=== PATIENT | male | born 1940 | race American Indian/Alaskan Native ===

== ENCOUNTER 2018-09-19 16:50 | Inpatient (IN) | payer MEDICARE ==
--- NOTE | 2018-09-19 18:00 | Emergency Department Report ---
- General Chief complaint: Weakness Stated complaint: N/V, WEAKNESS Time Seen by Provider: 09/19/18 17:45 Source: EMS Mode of arrival: Stretcher Limitations: No Limitations - History of Present Illness Initial comments: Patient is a 78-year-old male if this emergency room with complaints of shortness of breath, difficulty in breathing and weakness and nausea vomiting. Patient states symptoms started about 2 hours ago. Patient states she was at a senior center when the symptoms started. Patient was brought in by EMS. Patient was found to be hypoxemic and placed on oxygen. Patient states his symptoms are better with rest and worse with exertion. Patient states had a his tory of multiple myeloma and A. fib and hypertension MD Complaint: generalized weakness -: Sudden Severity scale (0 -10): 0 - Related Data Home Medications Medication Instructions Recorded Confirmed Last Taken AtorvaSTATin [Lipitor] 10 mg PO QHS 09/20/18 09/20/18 09/19/18 Dabigatran [Pradaxa] 150 mg PO BID 09/20/18 09/20/18 09/19/18 Furosemide [Lasix TAB] 20 mg PO QDAY 09/20/18 09/20/18 09/19/18 Gabapentin [Neurontin] 600 mg PO BID 09/20/18 09/20/18 09/19/18 HYDROmorphone [Dilaudid] 4 mg PO Q2HR PRN 09/20/18 09/20/18 Unknown Lidocaine [Lidocaine Pain Relief] 1 each TP PRN 09/20/18 09/20/18 Unknown Lidocaine [Lidocaine Pain Relief] 1 each TP PRN 09/20/18 09/20/18 Unknown Lisinopril [Zestril TAB] 20 mg PO QDAY 09/20/18 09/20/18 09/19/18 Sotalol HCl [Sotalol] 120 mg PO BID 09/20/18 09/20/18 09/19/18 hydroCHLOROthiazide [HCTZ] 12.5 mg PO QDAY 09/20/18 09/20/18 09/19/18 Previous Rx's Medication Instructions Recorded Last Taken Type Albuterol Sulfate [Proair 90 mcg IH Q4H PRN #1 pump 09/21/18 Unknown Rx Respiclick] guaiFENesin [Robitussin] 200 mg PO Q4H PRN #1 bottle 09/21/18 Unknown Rx levoFLOXacin [Levaquin] 750 mg PO QDAY #5 tablet 09/21/18 Unknown Rx Allergies Allergy/AdvReac Type Severity Reaction Status Date / Time No Known Allergies Allergy Verified 09/19/18 21:46 ED Review of Systems ROS: Stated complaint: N/V, WEAKNESS Other details as noted in HPI Constitutional: malaise, weakness. denies: chills, fever Eyes: denies: eye pain, eye discharge, vision change ENT: denies: ear pain, throat pain Respiratory: shortness of breath. denies: cough, wheezing Cardiovascular: denies: chest pain, palpitations Endocrine: no symptoms reported Gastrointestinal: nausea, vomiting. denies: abdominal pain, diarrhea Genitourinary: denies: urgency, dysuria Musculoskeletal: denies: back pain, joint swelling, arthralgia Skin: denies: rash, lesions Neurological: denies: headache, weakness, paresthesias Psychiatric: denies: anxiety, depression Hematological/Lymphatic: denies: easy bleeding, easy bruising ED Past Medical Hx - Past Medical History Previous Medical History?: Yes Hx Hypertension: Yes Additional medical history: A. fib. Multiple myeloma. Hypertension - Surgical History Past Surgical History?: Yes Additional Surgical History: gallbladder removed 2009 - Family History Family history: no significant - Social History Smoking Status: Former Smoker Substance Use Type: None - Medications Home Medications: Home Medications Medication Instructions Recorded Confirmed Last Taken Type AtorvaSTATin [Lipitor] 10 mg PO QHS 09/20/18 09/20/18 09/19/18 History Dabigatran [Pradaxa] 150 mg PO BID 09/20/18 09/20/18 09/19/18 History Furosemide [Lasix TAB] 20 mg PO QDAY 09/20/18 09/20/18 09/19/18 History Gabapentin [Neurontin] 600 mg PO BID 09/20/18 09/20/18 09/19/18 History HYDROmorphone [Dilaudid] 4 mg PO Q2HR PRN 09/20/18 09/20/18 Unknown History Lidocaine [Lidocaine Pain Relief] 1 each TP PRN 09/20/18 09/20/18 Unknown History Lidocaine [Lidocaine Pain Relief] 1 each TP PRN 09/20/18 09/20/18 Unknown History Lisinopril [Zestril TAB] 20 mg PO QDAY 07/09/20/18 09/19/18 History Sotalol HCl [Sotalol] 120 mg PO BID 09/20/18 09/20/18 09/19/18 History hydroCHLOROthiazide [HCTZ] 12.5 mg PO QDAY 09/20/18 09/20/18 09/19/18 History Albuterol Sulfate [Proair 90 mcg IH Q4H PRN #1 pump 09/21/18 Unknown Rx Respiclick] guaiFENesin [Robitussin] 200 mg PO Q4H PRN #1 bottle 09/21/18 Unknown Rx levoFLOXacin [Levaquin] 750 mg PO QDAY #5 tablet 09/21/18 Unknown Rx ED Physical Exam - General Limitations: No Limitations General appearance: alert, in no apparent distress - Head Head exam: Present: atraumatic, normocephalic - Eye Eye exam: Present: normal appearance - ENT ENT exam: Present: mucous membranes moist - Neck Neck exam: Present: normal inspection - Respiratory Respiratory exam: Present: normal lung sounds bilaterally. Absent: respiratory distress - Cardiovascular Cardiovascular Exam: Present: regular rate, normal rhythm. Absent: systolic murmur, diastolic murmur, rubs, gallop - GI/Abdominal GI/Abdominal exam: Present: soft, normal bowel sounds - Rectal Rectal exam: Present: deferred - Extremities Exam Extremities exam: Present: normal inspection - Back Exam Back exam: Present: normal inspection - Neurological Exam Neurological exam: Present: alert, oriented X3 - Psychiatric Psychiatric exam: Present: normal affect, normal mood - Skin Skin exam: Present: warm, dry, intact, normal color. Absent: rash - Assessment Assessment Interval: Baseline - Level of Consciousness 1a. Level of Consciousness: alert/keenly responsive - LOC Questions 1b. LOC Questions: answers both correctly - LOC Command 1c. LOC Commands: performs tasks correctly - Best Gaze 2. Best Gaze: normal - Visual 3. Visual: no visual loss - Facial Palsy 4. Facial Palsy: normal symmetrical movement - Motor Arm 5a. Motor Arm Left: no drift 5b. Motor Arm Right: no drift - Motor Leg 6a. Motor Leg Left: no drift 6b. Motor Leg Right: no drift - Limb Ataxia 7. Limb Ataxia: absent - Sensory 8. Sensory: normal - Best Language 9. Best Language: no aphasia - Dysarthria 10. Dysarthria: normal - Extinction and Inattention 11. Extinction/Inattention: no abnormality - Scoring Total Score: 0 Stroke Severity: No Stroke Symptoms ED Course Vital Signs 09/19/18 09/19/18 09/19/18 17:10 17:15 17:27 Temperature 100.5 F H Pulse Rate 92 H Respiratory 12 Rate Blood Pressure 143/78 Blood Pressure [Left] O2 Sat by Pulse 89 90 93 Oximetry 09/19/18 09/19/18 09/19/18 17:30 17:31 17:45 Temperature 100.5 F H Pulse Rate 91 H 92 H 94 H Respiratory 22 12 10 L Rate Blood Pressure 143/68 146/87 Blood Pressure 143/78 [Left] O2 Sat by Pulse 95 93 93 Oximetry 09/19/18 09/19/18 09/19/18 18:00 18:15 18:30 Temperature Pulse Rate 91 H 91 H 91 H Respiratory 44 H 47 H 23 Rate Blood Pressure 156/88 139/80 139/80 Blood Pressure [Left] O2 Sat by Pulse 92 95 92 Oximetry 09/19/18 09/19/18 09/19/18 19:00 19:15 19:30 Temperature Pulse Rate 92 H 94 H 93 H Respiratory 21 19 27 H Rate Blood Pressure 134/86 132/88 132/88 Blood Pressure [Left] O2 Sat by Pulse 94 93 94 Oximetry 09/19/18 09/19/18 09/19/18 19:45 20:00 21:17 Temperature Pulse Rate 91 H 91 H 80 Respiratory 50 H 18 Rate Blood Pressure 141/70 141/63 Blood Pressure [Left] O2 Sat by Pulse 94 93 Oximetry 09/19/18 09/20/18 09/20/18 23:53 00:00 00:15 Temperature Pulse Rate 85 85 80 Respiratory 16 29 H Rate Blood Pressure 141/63 130/78 130/78 Blood Pressure [Left] O2 Sat by Pulse Oximetry 09/20/18 09/20/18 09/20/18 00:30 00:45 01:01 Temperature Pulse Rate 78 76 78 Respiratory 27 H 27 H 39 H Rate Blood Pressure 130/78 132/69 145/70 Blood Pressure [Left] O2 Sat by Pulse Oximetry 09/20/18 09/20/18 09/20/18 01:15 01:30 01:45 Temperature Pulse Rate 80 Respiratory 31 H Rate Blood Pressure 122/73 126/80 131/75 Blood Pressure [Left] O2 Sat by Pulse Oximetry 09/20/18 09/20/18 09/20/18 02:01 02:15 02:31 Temperature Pulse Rate Respiratory Rate Blood Pressure 126/75 122/83 130/88 Blood Pressure [Left] O2 Sat by Pulse Oximetry 09/20/18 09/20/18 09/20/18 03:00 03:30 04:00 Temperature Pulse Rate Respiratory Rate Blood Pressure 119/69 128/74 130/75 Blood Pressure [Left] O2 Sat by Pulse 92 Oximetry 09/20/18 09/20/18 09/20/18 04:31 05:01 05:30 Temperature Pulse Rate Respiratory Rate Blood Pressure 139/75 132/66 120/74 Blood Pressure [Left] O2 Sat by Pulse 94 94 93 Oximetry 09/20/18 09/20/18 09/20/18 06:01 06:30 07:00 Temperature Pulse Rate 78 76 Respiratory 39 H 27 H Rate Blood Pressure 132/73 108/60 108/60 Blood Pressure [Left] O2 Sat by Pulse 93 92 95 Oximetry 09/20/18 09/20/18 09/20/18 07:30 07:41 07:51 Temperature Pulse Rate 81 85 81 Respiratory 26 H 29 H 32 H Rate Blood Pressure 103/51 103/51 103/51 Blood Pressure [Left] O2 Sat by Pulse 92 93 92 Oximetry 09/20/18 09/20/18 08:00 08:11 Temperature Pulse Rate 78 78 Respiratory 21 29 H Rate Blood Pressure 122/69 122/69 Blood Pressure [Left] O2 Sat by Pulse 91 92 Oximetry - Reevaluation(s) Reevaluation #1: I discussed all results with patient. Patient will be admitted to the hospitalist service. Patient agrees to plan of care. 09/19/18 19:57 - Consultations Consultation #1: Hospitalist consult. Hospitalist to admit patient and assume care of patient. 09/19/18 19:57 ED Medical Decision Making - Lab Data Result diagrams: 09/20/18 05:29 09/20/18 05:29 - EKG Data -: EKG Interpreted by Me EKG shows normal: sinus rhythm, axis, intervals, QRS complexes, ST-T waves Rate: normal - Radiology Data Radiology results: report reviewed CHEST 1 VIEW 1818 INDICATION / CLINICAL INFORMATION: Dyspnea. COMPARISON: None available. FINDINGS: SUPPORT DEVICES: None HEART / MEDIASTINUM: No significant abnormality. LUNGS / PLEURA: Poor degree of inspiration is seen despite 2 attempts. Bibasilar atelectatic changes are seen. No definite areas of consolidation are noted. No pneumothorax. ADDITIONAL FINDINGS: No significant additional findings. IMPRESSION: Basilar atelectasis CTA CHEST WITH IV CONTRAST INDICATION / CLINICAL INFORMATION: MAIN: COUGH, WEAKNESS. SOB.. AMS. . TECHNIQUE: Axial CT images were obtained through the chest after injection of 100 mL IV contrast. 3 plane MIP and/or 3D reconstructions were produced. All CT scans at this location are performed using CT dose reduction for ALARA by means of automated exposure control. COMPARISON: None available. FINDINGS: PULMONARY ARTERIES: No pulmonary emboli. THORACIC AORTA: Mild ectasia of the ascending aorta with maximum transverse diameter of 4.6 cm. HEART: No significant abnormality. CORONARY ARTERIES: Coronary artery calcification noted. PLEURA: No pleural effusion. No pneumothorax. LYMPH NODES: No significant adenopathy. LUNGS: There is chronic interstitial disease bilaterally. However there is more focal parenchymal disease in the left lung base and right middle lobe which could represent superimposed pneumonia. Unfortunately we have no prior older comparisons. ADDITIONAL FINDINGS: None. UPPER ABDOMEN: No acute findings. SKELETAL STRUCTURES: Osseous structures are grossly abnormal. There are innumerable lytic lesions seen throughout the visualized thoracic spine, ribs, sternum, and shoulders. There is a soft tissue component in a mid right lateral rib. This soft tissue mass measures approximately 4.2 cm. The overall appearance of the lytic lesions is most suggestive for multiple myeloma. Additionally there are severe compression fractures of 2 upper to mid thoracic vertebra with kyphotic deformity. No retropulsion noted. Incidental finding of old healed sternal fracture. IMPRESSION: 1. No CT evidence for pulmonary embolism. 2. Patchy airspace disease within both lower lobes with underlying chronic interstitial findings. The findings are certainly worrisome for superimposed pneumonia. Please correlate clinically. 3. Significant finding of numerous lytic lesions throughout the visualized thorax of concern for multiple myeloma. 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 4. Severe compression fractures of 2 upper to mid thoracic vertebra resulting in kyphotic deformity without significant retropulsion. - Medical Decision Making Patient is a 78-year-old Presents to the Emergency room with shortness of luciana th, difficulty breathing, nausea vomiting and weakness. Patient found to have pneumonia. Patient found to have hypokalemia. Patient's also found to have lactic acidosis. Patient admitted to the hospitalist service. Patient was found to be hypoxic and placed on oxygen. - Differential Diagnosis nausea. Vomiting. Weakness. Hypoxia. Shortness of breath Critical Care Time: Yes Critical care attestation.: If time is entered above; I have spent that time in minutes in the direct care of this critically ill patient, excluding procedure time. Critical Care Time: 35 minutes ED Disposition Clinical Impression: Hypoxia, SOB (shortness of breath), Weakness, Lactic acid acidosis, Hypokalemia Fever Qualifiers: Fever type: unspecified Qualified Code(s): R50.9 - Fever, unspecified Pneumonia Qualifiers: Pneumonia type: due to unspecified organism Laterality: unspecified laterality Lung location: unspecified part of lung Qualified Code(s): J18.9 - Pneumonia, unspecified organism Disposition: OP ADMIT IP TO THIS HOSP Is pt being admited?: Yes Does the pt Need Aspirin: No Condition: Fair Time of Disposition: 19:59
--- NOTE | 2018-09-19 18:47 | XRay Report ---
CHEST 1 VIEW 1818 INDICATION / CLINICAL INFORMATION: Dyspnea. COMPARISON: None available. FINDINGS: SUPPORT DEVICES: None HEART / MEDIASTINUM: No significant abnormality. LUNGS / PLEURA: Poor degree of inspiration is seen despite 2 attempts. Bibasilar atelectatic changes are seen. No definite areas of consolidation are noted. No pneumothorax. ADDITIONAL FINDINGS: No significant additional findings. IMPRESSION: Basilar atelectasis Signer Name: Rojelio Tillman MD Signed: 09/19/2018 6:43 PM Workstation Name: [id number]
[2018-09-19 18:58] LABS: Basophils % (Auto) 0.3 % (0.0-1.8); Eosinophils % (Auto) 0.3 % (0.0-4.3); Hematocrit 39.1 % (35.5-45.6); Hemoglobin 13.6 gm/dl (11.8-15.2); Lymphocytes # (Auto) 0.6 K/mm3 (1.2-5.4); Lymphocytes % (Auto) 8.2 % (13.4-35.0); Mean Corpuscular HGB Conc 35 % (32-34); Mean Corpuscular Volume 97 fl (84-94); Monocytes # (Auto) 0.3 K/mm3 (0.0-0.8); Platelet Count 152 K/mm3 (140-440); Red Blood Count 4.04 M/mm3 (3.65-5.03)
[2018-09-19 19:17] LABS: Creatine Kinase MB 1.6 ng/mL (0.0-4.0)
[2018-09-19 19:18] LABS: Alanine Aminotransferase 38 units/L (7-56); Albumin 4.2 g/dL (3.9-5); BUN/Creatinine Ratio 17; Blood Urea Nitrogen 19 mg/dL (9-20); Calcium 9.5 mg/dL (8.4-10.2); Hemolysis Index 7
--- NOTE | 2018-09-19 21:10 | Cat Scan Report ---
CTA CHEST WITH IV CONTRAST INDICATION / CLINICAL INFORMATION: MAIN: COUGH, WEAKNESS. SOB.. AMS. . TECHNIQUE: Axial CT images were obtained through the chest after injection of 100 mL IV contrast. 3 plane MIP an d/or 3D reconstructions were produced. All CT scans at this location are performed using CT dose redu ction for [facility] by means of automated exposure control. COMPARISON: None available. FINDINGS: PULMONARY ARTERIES: No pulmonary emboli. THORACIC AORTA: Mild ectasia of the ascending aorta with maximum transverse diameter of 4.6 cm. HEART: No significant abnormality. CORONARY ARTERIES: Coronary artery calcification noted. PLEURA: No pleural effusion. No pneumothorax. LYMPH NODES: No significant adenopathy. LUNGS: There is chronic interstitial disease bilaterally. However there is more focal parenchymal dis ease in the left lung base and right middle lobe which could represent superimposed pneumonia. Unfort unately we have no prior older comparisons. ADDITIONAL FINDINGS: None. UPPER ABDOMEN: No acute findings. SKELETAL STRUCTURES: Osseous structures are grossly abnormal. There are innumerable lytic lesions see n throughout the visualized thoracic spine, ribs, sternum, and shoulders. There is a soft tissue comp onent in a mid right lateral rib. This soft tissue mass measures approximately 4.2 cm. The overall ap pearance of the lytic lesions is most suggestive for multiple myeloma. Additionally there are severe compression fractures of 2 upper to mid thoracic vertebra with kyphotic deformity. No retropulsion noted. Incidental finding of old healed sternal fracture. IMPRESSION: 1. No CT evidence for pulmonary embolism. 2. Patchy airspace disease within both lower lobes with underlying chronic interstitial findings. The findings are certainly worrisome for superimposed pneumonia. Please correlate clinically. 3. Significant finding of numerous lytic lesions throughout the visualized thorax of concern for mult iple myeloma. There is a soft tissue mass component within a mid right lateral rib, possibly represen ting a plasmacytoma.. 4. Severe compression fractures of 2 upper to mid thoracic vertebra resulting in kyphotic deformity w ithout significant retropulsion. Signer Name: Liseth Saez MD Signed: 09/19/2018 9:06 PM Workstation Name: [id number]
--- NOTE | 2018-09-19 21:11 | Cat Scan Report ---
CT head/brain wo con INDICATION: weakness. TECHNIQUE: Routine CT head without contrast. Sagittal and coronal reformatted images were obtained. A ll CT scans at this location are performed using CT dose reduction for ALARA by means of automated ex posure control. COMPARISON: None. FINDINGS: BRAIN / INTRACRANIAL CONTENTS: No acute hemorrhage, mass effect, midline shift, hydrocephalus, or acu te, large territorial infarct. Chronic ischemic changes are seen in the right corpus stratum. No sign ificant white matter abnormality. Focal area of scalp thickening is seen in the left supraorbital reg ion. CRANIOCERVICAL JUNCTION: No significant abnormality. ORBITS: No significant abnormality of visualized orbits. SINUSES / MASTOIDS: No significant abnormality of the visualized paranasal sinuses or mastoid air magda ls. ADDITIONAL FINDINGS: None. IMPRESSION: I do not see an acute parenchymal lesion in the brain. Signer Name: Moe Jaramillo MD Signed: 09/19/2018 9:07 PM Workstation Name: [id number]
[2018-09-19] MEDS ORDERED: SODIUM CHLORIDE FLUSH SYRINGE 10 ML IV PRN (21:39)
[2018-09-19] MEDS ORDERED: PROVENTIL IH PRN (21:39)
[2018-09-19] MEDS ORDERED: TYLENOL PO PRN (21:39)
[2018-09-19] MEDS ORDERED: ZOFRAN IV PRN (21:39)
--- NOTE | 2018-09-19 21:39 | History and Physical Report ---
History of Present Illness Date of examination: 09/19/18 Date of admission: 09/19/2018 Chief complaint: Difficulty in breathing, cough History of present illness: 78-year-old -Congolese male who is a former smoker with history of multiple myeloma, hypertension, HLD, A. fib rate control on Pradaxa, who presents to [facility] ED via EMS with complaints of difficulty in breathing, weakness, nausea, emesis 2. He states that he was at the [facility] this afternoon, when his symptoms began. He started coughing followed by shortness of breath and difficulty breathing. His symptoms were accompanied by nausea with 2 episodes of emesis. The first episode was at the [facility] and the second episode was in the ambulance in route to our facility. Patient was found to be hypoxic by EMS and he was placed on supplemental oxygen. Patient states that this dyspnea is aggravated with exertion and improves at rest. Denies: Fever, chills, diarrhea, sputum production, hemoptysis, headache, hematuria, dysuria or recent sick contact Past History Past Medical History: atrial fib (on pradaxa), cancer (multiple myeloma, in remission for the past 12 years, ), hypertension, hyperlipidemia Past Surgical History: cholecystectomy (2009), Other (S/P stem cell transplant, chemotherapy and radiation) Social history: lives with family, other (former smoker ) Family history: no significant family history Medications and Allergies Allergies Allergy/AdvReac Type Severity Reaction Status Date / Time No Known Allergies Allergy Verified 09/19/18 21:46 Review of Systems All systems: negative (reviewed and no additional remarkable complaints except as noted below) Constitutional: weakness, malaise Cardiovascular: shortness of breath Respiratory: cough, shortness of breath, dyspnea on exertion Gastrointestinal: nausea, vomiting Exam - Physical Exam Narrative exam: Physical exam General appearance: Present: No acute distress, ill-appearing, alert and oriented 3, well-developed -Congolese male older adult - EENT Eyes: Present: PERRL, EOM intact ENT: hearing intact, normal dentition - Neck Neck: Present: supple, normal ROM - Respiratory Respiratory effort: Non-labored Respiratory: Faint bibasilar crackles - Cardiovascular Heart rate:94 (bpm) Rhythm: Sinus rhythm Heart Sounds: Present: S1 & S2. Absent: rub, click - Extremities Extremities: no ischemia, pulses intact, - Peripheral Assessment Peripheral Pulses: within normal limits - Abdominal General gastrointestinal: soft, non-tender, normal bowel sounds - Integumentary Integumentary: Present: warm, dry - Musculoskeletal Musculoskeletal: generalized weakness, and minimal function remains, ambulates with cane at baseline -Neurological Neurological:CN II-XII intact - Psychiatric Psychiatric: cooperative - Constitutional Vitals: Temp Pulse Resp BP Pulse Ox 100.5 F H 80 18 141/63 93 09/19/18 17:31 09/19/18 21:17 09/19/18 20:00 09/19/18 20:00 09/19/18 20:00 Results - Labs CBC & Chem 7: 09/19/18 18:47 09/19/18 18:47 Labs: Laboratory Last Values WBC 7.0 K/mm3 (4.5-11.0) 09/19/18 18:47 RBC 4.04 M/mm3 (3.65-5.03) 09/19/18 18:47 Hgb 13.6 gm/dl (11.8-15.2) 09/19/18 18:47 Hct 39.1 % (35.5-45.6) 09/19/18 18:47 MCV 97 fl (84-94) H 09/19/18 18:47 MCH 34 pg (28-32) H 09/19/18 18:47 MCHC 35 % (32-34) H 09/19/18 18:47 RDW 13.0 % (13.2-15.2) L 09/19/18 18:47 Plt Count 152 K/mm3 (140-440) 09/19/18 18:47 Lymph % (Auto) 8.2 % (13.4-35.0) L 09/19/18 18:47 [place] % (Auto) 4.0 % (0.0-7.3) 09/19/18 18:47 Eos % (Auto) 0.3 % (0.0-4.3) 09/19/18 18:47 Baso % (Auto) 0.3 % (0.0-1.8) 09/19/18 18:47 Lymph # 0.6 K/mm3 (1.2-5.4) L 09/19/18 18:47 [place] # 0.3 K/mm3 (0.0-0.8) 09/19/18 18:47 Eos # 0.0 K/mm3 (0.0-0.4) 09/19/18 18:47 Baso # 0.0 K/mm3 (0.0-0.1) 09/19/18 18:47 Seg Neutrophils % 87.2 % (40.0-70.0) H 09/19/18 18:47 Seg Neutrophils # 6.1 K/mm3 (1.8-7.7) 09/19/18 18:47 222.09 ng/mlDDU (0-234) 09/19/18 18:47 Sodium 139 mmol/L (137-145) 09/19/18 18:47 Potassium 3.2 mmol/L (3.6-5.0) L 09/19/18 18:47 Chloride 99.1 mmol/L (98-107) 09/19/18 18:47 Carbon Dioxide 26 mmol/L (22-30) 09/19/18 18:47 17 mmol/L 09/19/18 18:47 BUN 19 mg/dL (9-20) 09/19/18 18:47 1.1 mg/dL (0.8-1.5) 09/19/18 18:47 Estimated GFR > 60 ml/min 09/19/18 18:47 17 % 09/19/18 18:47 Glucose 104 mg/dL (75-100) H 09/19/18 18:47 Lactic Acid 2.30 mmol/L (0.7-2.0) H* 09/19/18 20:55 Calcium 9.5 mg/dL (8.4-10.2) 09/19/18 18:47 1.20 mg/dL (0.1-1.2) 09/19/18 18:47 AST 36 units/L (5-40) 09/19/18 18:47 ALT 38 units/L (7-56) 09/19/18 18:47 81 units/L (35-129) 09/19/18 18:47 284 units/L (55-170) H 09/19/18 18:47 CK-MB (CK-2) 1.6 ng/mL (0.0-4.0) 09/19/18 18:47 CK-MB (CK-2) Rel Index 0.5 (0-4) 09/19/18 18:47 < 0.010 ng/mL (0.00-0.029) 09/19/18 18:47 NT-Pro-B Natriuret Pep 456.5 pg/mL (0-900) 09/19/18 20:55 7.8 g/dL (6.3-8.2) 09/19/18 18:47 4.2 g/dL (3.9-5) 09/19/18 18:47 1.2 % 09/19/18 18:47 - Imaging and Cardiology EKG: image reviewed (SR 94 bpm) Chest x-ray: report reviewed (Poor degree of inspiration is seen despite 2 attempts. Bibasilar atelectatic ), image reviewed Imaging and Cardiology: CT angiogram chest: FINDINGS: PULMONARY ARTERIES: No pulmonary emboli. THORACIC AORTA: Mild ectasia of the ascending aorta with maximum transverse diameter of 4.6 cm. HEART: No significant abnormality. CORONARY ARTERIES: Coronary artery calcification noted. PLEURA: No pleural effusion. No pneumothorax. LYMPH NODES: No significant adenopathy. LUNGS: There is chronic interstitial disease bilaterally. However there is more focal parenchymal disease in the left lung base and right middle lobe which could represent s uperimposed pneumonia. Unfortunately we have no prior older comparisons. ADDITIONAL FINDINGS: None. UPPER ABDOMEN: No acute findings. SKELETAL STRUCTURES: Osseous structures are grossly abnormal. There are innumerable lytic lesions seen throughout the visualized thoracic spine, ribs, sternum, and shoulders. There is a soft tissue component in a mid right lateral rib. This soft tissue mass measures approximately 4.2 cm. The overall appearance of the lytic lesions is most suggestive for multiple myeloma. Additionally there are severe compression fractures of 2 upper to mid thoracic v ertebra with kyphotic deformity. No retropulsion noted. Incidental finding of old healed sternal fracture. IMPRESSION: 1. No CT evidence for pulmonary embolism. 2. Patchy airspace disease within both lower lobes with underlying chronic interstitial findings. The findings are certainly worrisome for superimposed pneumonia. Please correlate clinically. 3. Significant finding of numerous lytic lesions throughout the visualized thorax of concern for multiple myeloma. 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 4. Severe compression fractures of 2 upper to mid thoracic vertebra resulting in kyphotic deformity without significant retropulsion. CT Head: FINDINGS: BRAIN / INTRACRANIAL CONTENTS: No acute hemorrhage, mass effect, midline shift, hydrocephalus, or acute, large territorial infarct. Chronic ischemic changes are seen in the right corpus stratum. No significant white matter abnormality. Focal area of scalp thickening is seen in the left supraorbital region. CRANIOCERVICAL JUNCTION: No significant abnormality. ORBITS: No significant abnormality of visualized orbits. SINUSES / MASTOIDS: No significant abnormality of the visualized paranasal sinuses or mastoid air cells. ADDITIONAL FINDINGS: None. IMPRESSION: I do not see an acute parenchymal lesion in the brain. Assessment and Plan Assessment and plan: 78-year-old -Congolese male who is a former smoker with history of multiple myeloma, hypertension, HLD, A. fib rate control on Pradaxa, who presents to [facility] ED via EMS with complaints of difficulty in breathing, weakness, nausea, emesis 2. 1. Community-acquired pneumonia -Today's CTA CHest showed: Patchy airspace disease within both lower lobes with underlying chronic interstitial findings worrisome for superimposed pna -Low-grade temp of 100.5; give antipyretics when necessary -Blood cultures pending -Continue monitor CBC -Start empirically on Zosyn 2. Acute hypoxic respiratory failure - Continue to monitor oxygen saturation -Supplemental oxygen as needed, wean as tolerated -Albuterol when necessary 3. Cough -Likely secondary to community-acquired pneumonia -Nonproductive -Guaifenesin when necessary 4. Lactic acidosis - Lactic acid 2.4 on admission -Hydrate with IVF - Continue to monitor 5. Hyperkalemia -Potassium on admission 3.2 -Continue to monitor electrolytes and replete as needed - Ordered po potassium 40 mEqx1 6. Elevated D-dimer -D-dimer 2-2.09 on admission - CTA negative for PE 7. Generalized weakness - Complains of generalized weakness and malaise -Ambulates with cane at baseline - PT eval pending 8. History of A. fib -Rate controlled on Pradaxa and beta terry - Continue Pradaxa 150 mg twice a day - We'll continue beta terry once medication reconciliation is reconciled 9. HLD -Lipid panel pending -Will do some home statin once medication reconciliation is reconciled 10. HTN -Monitor BP -Resume once medication reconciliation is reconciled optimize blood pressure 11. History of multiple myeloma -Patient has been in remission for the past 12 years -S/p stem cell transplant -S/p chemotherapy and radiation 12. DVT PPX - Anticoagulated on Pradaxa Advance Directives: No VTE prophylaxis?: Chemical Plan of care discussed with patient/family: Yes
[2018-09-19] MEDS ORDERED: PERCOCET 5/325 PO PRN (21:42)
[2018-09-19] MEDS ORDERED: K-DUR PO ONE (21:50)
[2018-09-19] MEDS ORDERED: NACL 0.9% 1000 ML 1,000 ML IV SCH (22:00)
[2018-09-19] MEDS: COLACE PO SCH (22:17)
[2018-09-19] MEDS: SODIUM CHLORIDE FLUSH SYRINGE 10 ML IV SCH (22:18)
[2018-09-19] MEDS: ZOSYN/NS 3.375GM/50ML 3.375 GM/50 ML BAG IV SCH (22:19)
[2018-09-20] MEDS ORDERED: ROBITUSSIN ONE (03:51)
[2018-09-20] MEDS: ROBITUSSIN PO PRN (04:09)
[2018-09-20 04:30] LABS: Bilirubin,Urine NEG (Negative); Blood,Urine SM (Negative); Color,Urine Yellow (Yellow); Protein,Urine <15 mg/dL mg/dL (Negative)
[2018-09-20 05:47] LABS: Hematocrit 37.9 % (35.5-45.6); Mean Corpuscular HGB Conc 34 % (32-34); Mean Corpuscular Volume 98 fl (84-94); Platelet Count 140 K/mm3 (140-440); Red Blood Count 3.88 M/mm3 (3.65-5.03)
[2018-09-20 06:15] LABS: BUN/Creatinine Ratio 15; Blood Urea Nitrogen 17 mg/dL (9-20); Calcium 9.4 mg/dL (8.4-10.2); HDL Cholesterol 53 mg/dL (40-59); Hemolysis Index 14; LDL Cholesterol,Direct 83 mg/dL (50-130)
[2018-09-20] MEDS: ZOSYN/NS 3.375GM/50ML 3.375 GM/50 ML BAG IV SCH ×2 (08:10→17:33)
[2018-09-20] MEDS ORDERED: LOVENOX SUB-Q SCH (10:00)
--- NOTE | 2018-09-20 10:34 | Progress Note ---
Assessment and Plan Assessment and plan: 78-year-old -[place]ian male who is a former smoker with history of multiple myeloma, hypertension, HLD, A. fib rate control on Pradaxa, who presents to [facility] ED via EMS with complaints of difficulty in breathing, weakness, nausea, emesis 2. Community-acquired pneumonia -CTA CHest showed: Patchy airspace disease within both lower lobes with underlying chronic interstitial findings worrisome for superimposed pna -Fever of 100.5; give antipyretics when necessary -Blood cultures pending -Continue monitor CBC -Started empirically on Zosyn Possible sepsis Blood cultures drawn Acute hypoxic respiratory failure - Continue to monitor oxygen saturation -Supplemental oxygen as needed, wean as tolerated -Albuterol when necessary Cough -due to community-acquired pneumonia -productive of brown sputum -Guaifenesin when necessary Lactic acidosis - Lactic acid 2.4 on admission -Hydrate with IVF - Continue to monitor Hyperkalemia -Potassium on admission 3.2 -Continue to monitor electrolytes and replete as needed - Ordered po potassium 40 mEqx1 Elevated D-dimer -D-dimer 2-2.09 on admission - CTA negative for PE Generalized weakness - Complains of generalized weakness and malaise -Ambulates with cane at baseline - PT eval pending History of A. fib -Rate controlled on Pradaxa and beta terry - Continue Pradaxa 150 mg twice a day - We'll continue beta terry once medication reconciliation is reconciled HLD -Lipid panel pending -Will do some home statin once medication reconciliation is reconciled HTN -Monitor BP - History of multiple myeloma -Patient has been in remission for the past 12 years -S/p stem cell transplant -S/p chemotherapy and radiation DVT PPX - Anticoagulated on Pradaxa History Interval history: Cough Hospitalist Physical - Physical exam Narrative exam: Gen: Not in acute distress, lying in bed, morbidly obese HEENT: Normocephalic, atraumatic Neck: supple, no JVD Heart: S1 and S2 reg, no murmurs, rubs or gallop Lungs: Bilat basal crackles, no wheeze Abd: soft, non tender, non distended, normal BS Ext: No edema, no clubbing, no cyanosis Neuro:awake,alert, Oriented X 3. No focal signs - Constitutional Vitals: Temp Pulse Resp BP Pulse Ox 99.1 F 74 20 122/63 94 09/20/18 09:04 09/20/18 09:04 09/20/18 09:04 09/20/18 09:04 09/20/18 09:04 Results - Labs CBC & Chem 7: 09/20/18 05:29 09/20/18 05:29 Labs: Laboratory Last Values WBC 8.8 K/mm3 (4.5-11.0) 09/20/18 05:29 RBC 3.88 M/mm3 (3.65-5.03) 09/20/18 05:29 Hgb 13.0 gm/dl (11.8-15.2) 09/20/18 05:29 Hct 37.9 % (35.5-45.6) 09/20/18 05:29 MCV 98 fl (84-94) H 09/20/18 05:29 MCH 33 pg (28-32) H 09/20/18 05:29 MCHC 34 % (32-34) 09/20/18 05:29 RDW 13.0 % (13.2-15.2) L 09/20/18 05:29 Plt Count 140 K/mm3 (140-440) 09/20/18 05:29 Lymph % (Auto) 8.2 % (13.4-35.0) L 09/19/18 18:47 [place] % (Auto) 4.0 % (0.0-7.3) 09/19/18 18:47 Eos % (Auto) 0.3 % (0.0-4.3) 09/19/18 18:47 Baso % (Auto) 0.3 % (0.0-1.8) 09/19/18 18:47 Lymph # 0.6 K/mm3 (1.2-5.4) L 09/19/18 18:47 [place] # 0.3 K/mm3 (0.0-0.8) 09/19/18 18:47 Eos # 0.0 K/mm3 (0.0-0.4) 09/19/18 18:47 Baso # 0.0 K/mm3 (0.0-0.1) 09/19/18 18:47 Seg Neutrophils % 87.2 % (40.0-70.0) H 09/19/18 18:47 Seg Neutrophils # 6.1 K/mm3 (1.8-7.7) 09/19/18 18:47 222.09 ng/mlDDU (0-234) 09/19/18 18:47 Sodium 143 mmol/L (137-145) 09/20/18 05:29 Potassium 3.9 mmol/L (3.6-5.0) D 09/20/18 05:29 Chloride 100.7 mmol/L (98-107) 09/20/18 05:29 Carbon Dioxide 32 mmol/L (22-30) H 09/20/18 05:29 14 mmol/L 09/20/18 05:29 BUN 17 mg/dL (9-20) 09/20/18 05:29 1.1 mg/dL (0.8-1.5) 09/20/18 05:29 Estimated GFR > 60 ml/min 09/20/18 05:29 15 % 09/20/18 05:29 Glucose 113 mg/dL (75-100) H 09/20/18 05:29 Lactic Acid 2.20 mmol/L (0.7-2.0) H* 09/20/18 09:01 Calcium 9.4 mg/dL (8.4-10.2) 09/20/18 05:29 1.20 mg/dL (0.1-1.2) 09/19/18 18:47 AST 36 units/L (5-40) 09/19/18 18:47 ALT 38 units/L (7-56) 09/19/18 18:47 81 units/L (35-129) 09/19/18 18:47 284 units/L (55-170) H 09/19/18 18:47 CK-MB (CK-2) 1.6 ng/mL (0.0-4.0) 09/19/18 18:47 CK-MB (CK-2) Rel Index 0.5 (0-4) 09/19/18 18:47 < 0.010 ng/mL (0.00-0.029) 09/19/18 18:47 NT-Pro-B Natriuret Pep 456.5 pg/mL (0-900) 09/19/18 20:55 7.8 g/dL (6.3-8.2) 09/19/18 18:47 4.2 g/dL (3.9-5) 09/19/18 18:47 1.2 % 09/19/18 18:47 Triglycerides 73 mg/dL (2-149) 09/20/18 05:29 Cholesterol 138 mg/dL (50-199) 09/20/18 05:29 83 mg/dL (50-130) 09/20/18 05:29 53 mg/dL (40-59) 09/20/18 05:29 2.60 % 09/20/18 05:29 Yellow (Yellow) 09/20/18 04:00 Clear (Clear) 09/20/18 04:00 6.0 (5.0-7.0) 09/20/18 04:00 Ur Specific [place] 1.044 (1.003-1.030) H 09/20/18 04:00 <15 mg/dl mg/dL (Negative) 09/20/18 04:00 Neg mg/dL (Negative) 09/20/18 04:00 Neg mg/dL (Negative) 09/20/18 04:00 Sm (Negative) 09/20/18 04:00 Neg (Negative) 09/20/18 04:00 Neg (Negative) 09/20/18 04:00 4.0 mg/dL (<2.0) 09/20/18 04:00 Ur Leukocyte Esterase Neg (Negative) 09/20/18 04:00 1.0 /HPF (0.0-6.0) 09/20/18 04:00 3.0 /HPF (0.0-6.0) 09/20/18 04:00 U Epithel Cells (Auto) < 1.0 /HPF (0-13.0) 09/20/18 04:00 Active Medications - Current Medications Current Medications: Generic Name Dose Route Start Last Admin Trade Name Freq PRN Reason Stop Dose Admin Acetaminophen 650 mg 09/19/18 21:39 Tylenol PO Q4H PRN Pain MILD(1-3)/Fever >100.5/SHERMAN Albuterol 2.5 mg 09/19/18 21:39 Proventil IH Q3HRT PRN Shortness Of Breath Dabigatran 150 mg 09/20/18 10:00 Pradaxa PO BID [facility] Docusate Sodium 100 mg 09/19/18 22:00 09/19/18 22:17 Colace PO 100 mg BID BUBBA Administration Guaifenesin 200 mg 09/19/18 22:07 09/20/18 04:09 Robitussin PO 200 mg Q4H PRN Administration Cough Sodium Chloride 1,000 mls @ 100 mls/hr 09/19/18 22:00 Nacl 0.9% 1000 Ml IV 09/20/18 12:00 DIRECT BUBBA Piperacillin Sod/Tazobactam Sod 3.375 gm in 50 mls @ 100 mls/hr 09/19/18 22:00 09/20/18 08:10 Zosyn/Ns 3.375gm/50ml IV 100 mls/hr Q8HR BUBBA Administration Protocol Ondansetron HCl 4 mg 09/19/18 21:39 Zofran IV Q8H PRN Nausea And Vomiting Oxycodone/Acetaminophen 1 tab 09/19/18 21:42 Percocet 5/325 PO Q6H PRN Pain, Moderate (4-6) Sodium Chloride 10 ml 09/19/18 22:00 09/19/18 22:18 Sodium Chloride Flush Syringe 10 Ml IV 10 ml BID BUBBA Administration Sodium Chloride 10 ml 09/19/18 21:39 Sodium Chloride Flush Syringe 10 Ml IV PRN PRN LINE FLUSH
[2018-09-20 10:57] LABS: Band Neutrophils # (Manual) 0.7 K/mm3; Basophils % (Manual) 0 % (0.0-1.8); Eosinophils % (Manual) 0 % (0.0-4.3); Total Cells Counted 100
[2018-09-20 10:58] LABS: Platelet Estimate Consistent w Auto; RBC Morphology Normal
[2018-09-20] MEDS: PRADAXA PO SCH ×2 (12:29→21:31)
[2018-09-20] MEDS: COLACE PO SCH ×2 (12:29→21:31)
[2018-09-20] MEDS ORDERED: DILAUDID PO PRN (17:08)
[2018-09-20] MEDS ORDERED: LIDOCAINE TP SCH ×2 (17:15)
[2018-09-20] MEDS: LASIX PO SCH (17:30)
[2018-09-20] MEDS: SODIUM CHLORIDE FLUSH SYRINGE 10 ML IV SCH ×2 (17:33→21:33)
[2018-09-20] MEDS ORDERED: ZESTRIL PO SCH (18:00)
[2018-09-20] MEDS: BETAPACE PO SCH (21:31)
[2018-09-20] MEDS: NEURONTIN PO SCH (21:31)
[2018-09-20] MEDS ORDERED: NON-FORMULARY (Gabapentin [Neurontin] 600 MG) PO SCH (22:00)
[2018-09-20] MEDS ORDERED: SOTALOL HCL 120 MG PO SCH (22:00)
[2018-09-21] MEDS: ZOSYN/NS 3.375GM/50ML 3.375 GM/50 ML BAG IV SCH ×3 (03:11→13:57)
[2018-09-21] MEDS: ROBITUSSIN PO PRN (03:23)
[2018-09-21] MEDS ORDERED: HCTZ PO SCH (10:00)
[2018-09-21] MEDS: NEURONTIN PO SCH (10:27)
[2018-09-21] MEDS: BETAPACE PO SCH (10:27)
[2018-09-21] MEDS: PRADAXA PO SCH (10:27)
[2018-09-21] MEDS: LASIX PO SCH (10:28)
[2018-09-21] MEDS: COLACE PO SCH (10:28)
[2018-09-21] MEDS: SODIUM CHLORIDE FLUSH SYRINGE 10 ML IV SCH (10:28)
[2018-09-21 13:56] VITALS: BP 107/68
--- NOTE | 2018-09-21 14:43 | Discharge Summary ---
Providers - Providers Date of Admission: 09/19/18 21:39 Date of discharge: 09/21/18 Attending physician: DELMA SULTANA 09/19/18 22:16 Physical Therapy Evaluation and Treat [CONS] Routine Comment: Reason For Exam: generalized weakness, slow gait, ambulates with ca Primary care physician: FRAN BOLES MD Hospitalization Condition: Fair Hospital course: Patient is 78-year-old -[place] male who is a former smoker with history of multiple myeloma, hypertension, HLD, A. fib rate controlled on Pradaxa, who [facility] via EMS with complaints of difficulty in breathing, weakness, nausea, emesis 2. Patient was found to be hypoxic by EMS and he was placed on supplemental oxygen. He was brought to ED seen and evaluated in ED. CT Chest showed bilateral lower lobe pneumonia. He was put on Zosyn, He had sepsis due to pneumonia, associated with lactic acidosis. He improved over 2 days, shortness of breath improved and he was discharged home on Levaquin on 09/19/18. Total time spent on discharge, 33 mins Disposition: DC- TO HOME OR SELFCARE - Discharge Diagnoses (1) Fever Status: Acute Qualifiers: Fever type: unspecified Qualified Code(s): R50.9 - Fever, unspecified (2) Pneumonia Status: Acute Qualifiers: Pneumonia type: due to unspecified organism Laterality: unspecified laterality Lung location: unspecified part of lung Qualified Code(s): J18.9 - Pneumonia, unspecified organism (3) SOB (shortness of breath) Status: Acute (4) Acute respiratory failure Status: Acute (5) HTN (hypertension) Status: Acute (6) Multiple myeloma Status: Acute (7) Sepsis Status: Acute (8) Hypokalemia Status: Acute Core Measure Documentation - Palliative Care Palliative Care/ Comfort Measures: Not Applicable - Core Measures Any of the following diagnoses?: none Exam - Constitutional Vitals: Temp Pulse Resp BP Pulse Ox 98.7 F 73 18 107/68 93 09/21/18 13:50 09/21/18 13:50 09/21/18 13:50 09/21/18 13:50 09/21/18 13:50 Plan Activity: advance as tolerated Diet: low fat, low cholesterol, low salt Additional Instructions: 1.Follow up with PCP in 1 week Follow up with: FRAN WILKINS MD [Primary Care Provider] - 7 Days Prescriptions: levoFLOXacin [Levaquin] 750 mg PO QDAY #5 tablet Albuterol Sulfate [Proair Respiclick] 90 mcg IH Q4H PRN #1 pump PRN Reason: Shortness Of Breath guaiFENesin [Robitussin] 200 mg PO Q4H PRN #1 bottle PRN Reason: Cough
== END 2018-09-21 14:00 | disposition home or self-care (01) | DRG 193 ==
LOC: ED 16:50 → 2B-ACE 21:39
PROVIDERS: ADMIT Internal Medicine; ATTEND Internal Medicine
DX: J18.9 Pneumonia, unspecified organism (principal); J96.01 Acute respiratory failure with hypoxia; E87.2 Acidosis; I48.91 Unspecified atrial fibrillation; I10 Essential (primary) hypertension; E87.6 Hypokalemia; E78.5 Hyperlipidemia, unspecified; Z85.79 Personal history of other malignant neoplasms of lymphoid, hematopoietic and related tissues; Z90.49 Acquired absence of other specified parts of digestive tract; Z87.891 Personal history of nicotine dependence; Z79.01 Long term (current) use of anticoagulants
CPT/HCPCS: 36415; 70450; 71045; 71275; 80048; 80053; 80061; 81001; 82140; 82550; 82553; 83880; 84484; 85007; 85025; 85379; 87040; 93005; 93010; G0378; A9270-GY; J2543; Q9967